=== PATIENT | male | born 1945 ===

== ENCOUNTER → 2016-06-16 | Outpatient (CLI) | payer OTHER, MEDICARE ==
--- NOTE | 2016-06-16 19:50 | DI ---
XR SHOULDER MIN 2VW,06/16/2016 11:37 AM: Clinical History: Bilateral shoulder pain Previous Exam: None at this facility. Findings: 3 views of the left shoulder are obtained, and demonstrate a 3.2 x 2.2 cm hyperdense spiculated mass within the left proximal humerus involving the marrow space. There is no associated soft tissue mass. There is no periosteal reaction. No fractures seen. The adjacent left lung and chest wall are unremarkable. There are some mild degenerative changes of the left glenohumeral joint. Impression: Sclerotic lesion of the left proximal humerus measuring 2.2 x 3.2 cm with arcs and swirls most consis tent with a chondroid lesion. There are no other signs of malignancy. CT or MRI might be helpful for further evaluation. Degenerative changes of the left proximal humeral joint.
--- NOTE | 2016-06-16 19:52 | DI ---
XR SHOULDER MIN 2VW,06/16/2016 11:37 AM: Clinical History: Bilateral shoulder pain. Previous Exam: MRI of the right shoulder performed July 24, 2014 Findings: 3 views of the right shoulder are obtained, and demonstrate degenerative changes of the right glenohu meral joint with loss of joint space, sclerosis and osteophyte formation. There are degenerative changes involving the right acromioclavicular joint. Impression: Degenerative changes of the right glenohumeral joint and right acromioclavicular joint.
== END ==
LOC: RAD 11:33
PROVIDERS: ATTEND Physician Assistant Surgical
DX: M25.512 Pain in left shoulder (principal); M25.511 Pain in right shoulder; M19.012 Primary osteoarthritis, left shoulder; M19.011 Primary osteoarthritis, right shoulder
CPT/HCPCS: 73030

== ENCOUNTER → 2016-06-25 | Outpatient (CLI) | payer OTHER, MEDICARE ==
[2016-06-25 11:11] LABS: BASOPHILS # (AUTO) 0.02 10*3/UL; BASOPHILS % (AUTO) 0.4 % (0-1); EOSINOPHILS % (AUTO) 1.1 % (0-8); HEMATOCRIT 44.4 % (42.0-52.0); HEMOGLOBIN 14.6 g/dL (14.0-18.0); IMM GRAN % (AUTO) 0.2 % (0-5); IMM GRAN# (AUTO) 0.01 10*3/UL; LYMPHOCYTES % (AUTO) 26.3 % (10-50); MEAN CORPUSCULAR HEMOGLOBIN 31.5 PG (27-31); MEAN CORPUSCULAR HGB CONC 32.9 g/dL (33-37); MEAN PLATELET VOLUME 9.1 FL (7.4-12.2); MONOCYTES # (AUTO) 0.77 10*3/UL (0.3-0.8); MONOCYTES % (AUTO) 13.5 % (5-15); NEUTROPHILS # (AUTO) 3.34 10*3/UL; NEUTROPHILS % (AUTO) 58.5 % (50-80); RED BLOOD COUNT 4.64 10^6/uL (4.70-6.10)
[2016-06-25 11:13] LABS: PLATELET MORPHOLOGY COMMENT NORMAL MORPHOLOGY (NORM)
--- NOTE | 2016-06-25 11:14 | EKG ---
[address] [address] Measurements Intervals [place] Rate: 52 P: 64 TN: 162 QRS: 65 QRSD: 102 T: 74 QT: 415 QTc: 395 Interpretive Statements SINUS BRADYCARDIA Compared to ECG 08/05/2014 13:24:45 Sinus rhythm no longer present Electronically Signed On 06-25-16 14:35:42 MST by Cali Proctor [email or web address]
[2016-06-25 11:25] LABS: ASPARTATE AMINO TRANSFERASE 19 IU/L (21-57); BILIRUBIN,TOTAL 0.8 mg/dL (0.3-1.2); BLOOD UREA NITROGEN 20 mg/dL (7-22); CALCIUM 9.5 mg/dL (8.7-10.7); CHLORIDE 100 meq/L (98-112); EST GLOMERULAR FILTRATION > 60 (>60 ml/min/1.73m(2)); GLUCOSE 106 mg/dL (78-110); POTASSIUM 4.2 meq/L (3.8-5.2); SODIUM 139 meq/L (135-145); TOTAL PROTEIN 7.3 g/dL (6.1-8.0)
== END ==
LOC: LAB 10:55
PROVIDERS: ATTEND Orthopaedic Surgery
DX: M25.511 Pain in right shoulder (principal); R00.1 Bradycardia, unspecified
CPT/HCPCS: 36415; 80053; 85025; 93005; 93010

== ENCOUNTER → 2016-07-13 | Outpatient (CLI) | payer OTHER, MEDICARE ==
[2016-07-13 12:09] LABS: BASOPHILS # (AUTO) 0.06 10*3/UL; BASOPHILS % (AUTO) 0.9 % (0-1); EOSINOPHILS # (AUTO) 0.52 10*3/UL; EOSINOPHILS % (AUTO) 7.9 % (0-8); HEMATOCRIT 42.6 % (42.0-52.0); HEMOGLOBIN 13.8 g/dL (14.0-18.0); LYMPHOCYTES # (AUTO) 1.32 10*3/uL; MEAN CORPUSCULAR HEMOGLOBIN 31.2 PG (27-31); MEAN CORPUSCULAR HGB CONC 32.4 g/dL (33-37); MEAN CORPUSCULAR VOLUME 96.4 FL (80-90); MEAN PLATELET VOLUME 9.1 FL (7.4-12.2); MONOCYTES # (AUTO) 0.54 10*3/UL (0.3-0.8); MONOCYTES % (AUTO) 8.2 % (5-15); NEUTROPHILS # (AUTO) 4.12 10*3/UL; NEUTROPHILS % (AUTO) 62.6 % (50-80); RED BLOOD COUNT 4.42 10^6/uL (4.70-6.10)
[2016-07-13 12:44] LABS: PLATELET MORPHOLOGY COMMENT NORMAL MORPHOLOGY (NORM); RBC MORPHOLOGY COMMENT NORMAL MORPHOLOGY (NORM); WBC MORPHOLOGY COMMENT NORMAL MORPHOLOGY (NORM)
[2016-07-13 13:09] LABS: ERYTHROCYTE SEDIMENTATION RATE 5 MM/HR (0-15)
== END ==
LOC: LAB 11:45
PROVIDERS: ATTEND Orthopaedic Surgery
DX: S40.021A Contusion of right upper arm, initial encounter (principal)
CPT/HCPCS: 36415; 85025; 85652; 86140

== ENCOUNTER 2019-04-02 10:52 | Inpatient (IN) ==
[2019-04-02 11:22] LABS: VENOUS PH 7.38 (7.32-7.42)
[2019-04-02 11:26] LABS: BASOPHILS # (AUTO) 0.08 10*3/UL; BASOPHILS % (AUTO) 1.3 % (0-1); EOSINOPHILS # (AUTO) 0.06 10*3/UL; Hematocrit [HCT] 44.5 % (42.0-52.0); Hemoglobin [HGB] 14.2 g/dL (14.0-18.0); LYMPHOCYTES # (AUTO) 0.79 10*3/uL; MEAN CORPUSCULAR HGB CONC 31.9 g/dL (33-37); MEAN CORPUSCULAR VOLUME 98.7 FL (80-90); MEAN PLATELET VOLUME 9.2 FL (7.4-12.2); MONOCYTES # (AUTO) 0.62 10*3/UL (0.3-0.8); MONOCYTES % (AUTO) 10.1 % (5-15); NEUTROPHILS % (AUTO) 74.6 % (50-80); PLATELET MORPHOLOGY COMMENT NORMAL MORPHOLOGY (NORM); RBC MORPHOLOGY COMMENT NORMAL MORPHOLOGY (NORM); RED BLOOD COUNT 4.51 10^6/uL (4.70-6.10); WBC MORPHOLOGY COMMENT NORMAL MORPHOLOGY (NORM)
[2019-04-02 11:34] LABS: BUN/CREATININE RATIO 8.46 (6-20); SERUM ALBUMIN 4.5 g/dL (3.5-4.8)
[2019-04-02] MEDS ORDERED: METOPROLOL TARTRATE 5 MG/5 ML VIAL IVP ONE (13:21)
[2019-04-02] MEDS ORDERED: FUROSEMIDE 10 MG/1 ML - 4 ML IVP ONE (14:10)
[2019-04-02] MEDS ORDERED: METOPROLOL SUCCINATE 50 MG SR 24H TABLET PO SCH (14:15)
[2019-04-02] MEDS ORDERED: LIDOCAINE W/ SODIUM BICARB 0.5 ML SYR SUBD PRN (15:13)
[2019-04-02] MEDS ORDERED: POTASSIUM 99 MG PO SCH (15:15)
[2019-04-02] MEDS: predniSONE Tab 20 MG TAB PO SCH ×3 (15:44→20:02)
[2019-04-02] MEDS: Metoprolol TARTRATE Tab 25 MG TAB PO SCH ×2 (15:45→20:02)
[2019-04-02] MEDS: Apixaban 5 MG TABLET PO SCH ×2 (15:52→20:02)
[2019-04-02] MEDS: ASPIRIN EC 81 MG TABLET PO SCH (15:52)
[2019-04-02] MEDS ORDERED: Magnesium Sulfate 2gm (Premix) 2 GM/50 ML BAG IV ONE (19:33)
[2019-04-03 03:27] VITALS: TEMP 98.5
[2019-04-03 04:56] LABS: BASOPHILS # (AUTO) 0.02 10*3/UL; BASOPHILS % (AUTO) 0.4 % (0-1); EOSINOPHILS # (AUTO) 0 10*3/UL; EOSINOPHILS % (AUTO) 0 % (0-8); Hematocrit [HCT] 43.7 % (42.0-52.0); Hemoglobin [HGB] 14.2 g/dL (14.0-18.0); LYMPHOCYTES # (AUTO) 0.78 10*3/uL; MEAN CORPUSCULAR HGB CONC 32.5 g/dL (33-37); MEAN CORPUSCULAR VOLUME 97.8 FL (80-90); MEAN PLATELET VOLUME 9.4 FL (7.4-12.2); MONOCYTES # (AUTO) 0.17 10*3/UL (0.3-0.8); MONOCYTES % (AUTO) 3.2 % (5-15); NEUTROPHILS # (AUTO) 4.33 10*3/UL; NEUTROPHILS % (AUTO) 81.5 % (50-80); RED BLOOD COUNT 4.47 10^6/uL (4.70-6.10)
[2019-04-03 05:00] LABS: PLATELET MORPHOLOGY COMMENT NORMAL MORPHOLOGY (NORM); RBC MORPHOLOGY COMMENT NORMAL MORPHOLOGY (NORM); WBC MORPHOLOGY COMMENT NORMAL MORPHOLOGY (NORM)
[2019-04-03 05:06] LABS: BUN/CREATININE RATIO 11.42 (6-20)
[2019-04-03] MEDS ORDERED: LEVOTHYROXINE 125 MCG TABLET PO SCH (05:30)
[2019-04-03] MEDS ORDERED: Magnesium Sulfate 2gm (Premix) 2 GM/50 ML BAG IV ONE (06:15)
[2019-04-03] MEDS ORDERED: FUROSEMIDE 10 MG/1 ML - 4 ML IVP SCH (07:00)
[2019-04-03 07:15] VITALS: RESP 18
[2019-04-03] MEDS ORDERED: Sodium Chloride 0.9% 1,000 ML PRIMARY IV ONE (08:19)
[2019-04-03 08:35] VITALS: BP 99/61; O2SAT 95
[2019-04-03] MEDS: Apixaban 5 MG TABLET PO SCH (08:44)
[2019-04-03] MEDS: ASPIRIN EC 81 MG TABLET PO SCH (08:44)
[2019-04-03] MEDS: predniSONE Tab 20 MG TAB PO SCH (08:44)
[2019-04-03] MEDS ORDERED: Metoprolol TARTRATE Tab 50 MG TAB PO SCH (09:00)
== END 2019-04-03 09:10 | disposition short-term general hospital (02) | DRG 293 ==
LOC: ER 10:52 → MED/SURG 14:57 → ICU 15:05
PROVIDERS: ADMIT Internal Medicine; ATTEND Internal Medicine